=== PATIENT | male | born 1975 | race African-American/Black ===

== ENCOUNTER 2023-10-17 09:52 | Emergency (ER) | payer OTHER, SELFPAY ==
[2023-10-17 10:00] VITALS: BP 149/87
--- NOTE | 2023-10-17 10:31 | ED.GENMED ---
History of Present Illness
General
Chief Complaint: Urinary Symptoms
Source: patient
Exam Limitations: none
Time Seen by Provider: 10/17/23 10:15
Nursing documentation reviewed up to this point in time: agreed with
Travel History
Have you had any contact with someone who has COVID-19?: No
Do you have any symptoms of coronavirus? Fever > 100 degrees, chills, cough, shortness of breath, sore throat, loss of taste or smell, muscle aches, or headache?: No
History of Present Illness
History of Present Illness:
48-year-old male presenting to the emergency department today with concerns of swelling to his testicle over the past 2 days. Denies any specific injuries to the area or obvious inciting event. Denies any urinary symptoms no additional symptoms
otherwise. Claims that he may have had some mild trauma to the area when he slipped on ice in his legs may have hit him in the scrotum.
Review of Systems
Review of Systems
Allergies reviewed?: Yes
All Other Systems: ROS reviewed and negative except as documented in HPI and ROS
Phy Exam
Physical Exam
Physical Exam:
GENERAL: Alert , in no apparent distress
EYE: pupils equal and reactive
NECK: Supple, no significant adenopathy.
ENT: o/p clr, mmm.
CARDIAC: Regular rate and rhythm .
LUNGS: Clear breath sounds bilaterally, no acute respiratory distress, no wheezes/rales/rhonchi
ABDOMEN: Significant swelling to the scrotum right-sided worse than the left no fluctuance or induration. Minimal tenderness. Normal penis
NEUROLOGICAL: Alert and oriented, no focal neuro deficits
SKIN: Warm and dry, skin intact.
MUSCULOSKELETAL: No edema, well perfused.
PSYCH: Normal and appropriate interaction.
Course
Orders/Labs/Results
Orders:
Orders
10/17/23 10:27
Scrotum US [US Scrotum] Urgent
Comment:
Reason For Exam: right scrotal swelling
10/17/23 10:49
Urinalysis Reflex To Culture Urgent
Date Specimen was Collected: 10/17/23
Time Specimen was Collected: 10:28
Urine Microscopic Reflex Cult Urgent
Abnormal Lab Results
10/17/23
10:49
Leukocyte Esterase Rfl Trace A
(Negative)
Vital Signs
Initial and Last Documented VS:
Initial Vital Signs
Temp Pulse Resp BP Pulse Ox
98.4 F 72 18 149/87 96
10/17/23 10:00 10/17/23 10:00 10/17/23 10:00 10/17/23 10:00 10/17/23 10:00
Last Documented Vital Signs
Temp Pulse Resp BP Pulse Ox
98.4 F 72 18 149/87 96
10/17/23 10:00 10/17/23 10:00 10/17/23 10:00 10/17/23 10:00 10/17/23 10:00
MDM/Problems Addressed
MDM/Problems Addressed:
48-year-old male presenting to the emergency department today with concerns of significant swelling to the testicle mainly on the right side some swelling to the left as well. No significant redness or warmth mild tenderness to the proximal portion
of the testicle however the discomfort is minimal. No additional findings otherwise no fluctuance or induration. Plan for ultrasound for further assessment. Ultrasound showing hydrocele. Otherwise patient generally well-appearing urinalysis
without signs of infection or additional concerns. No concerns for STD. Plan for symptomatic treatment and close follow-up with urologist as needed. Return precautions given.
*Critical Care Note
Total Time (30-74mins, 75-104mins- exclusive of procedures): Not Applicable
ED Attending Note
-
Portions of this chart may have been created with voice recognition software.� Occasional wrong word or��sound alike� substitutions may have occurred due to the inherent limitations of voice recognition software.
Discharge Plan
Departure
Patient Disposition: Home (Routine Discharge)
Date of Disposition: 10/17/23
Time of Disposition: 12:29
Patient with high blood pressure during this ER visit?: Yes
Condition: Good
Covid-19: Not Applicable
Discharge Problem:
Hydrocele
Instructions: Hydrocele/Varicocele (DC), BLOOD PRESSURE
Referrals:
Neto Miguel MD [Active] -
Jovanny Garcia DO [Family Provider] -
Stand Alone Forms: Return to Work
Activity Restrictions/Additional Instructions:
You came to the emergency department today with concerns of swelling to the scrotum. This is what is called a hydrocele. This should hopefully go away its own if it does not please follow-up closely with urology within 1 week. Return to the
emergency department for any worsening, new or concerning symptoms.
Interventions
Interventions:
*Nursing Disposition Last Done: 10/17/23 12:36
Discharge Date and Time
Discharge Date/Time: 10/17/23 12:37
[2023-10-17 11:05] LABS: Urine Albumin Negative (Neg - Trace); Urine Bilirubin Negative (Negative); Urine Character Clear (Clear); Urine Color Yellow; Urine Glucose Negative (Negative); Urine Ketone Negative (Negative); Urine Leukocyte Trace (Negative); Urine Nitrite Negative (Negative); Urine Occult Blood Negative (Negative); Urine Specific Gravity 1.005 (<1.030); Urine Urobilinogen Negative (Neg - 1+); Urine pH 6.5 (5.0-9.0)
[2023-10-17 11:22] LABS: Urine Red Blood Cell None Seen /HPF (0-2); Urine White Cell 0-2 /HPF (0-5)
== END 2023-10-17 12:37 | disposition home or self-care (01) ==
LOC: EMR 09:52
PROVIDERS: Physician Assistant; EMERGENCY PHYSICIAN Emergency Medicine; FAMILY PHYSICIAN Family Medicine
DX: N43.3 Hydrocele, unspecified (principal)
CPT/HCPCS: 99284; 76870; 81003; 81015; 93976

== ENCOUNTER 2023-11-17 06:21 | Day surgery (SDC) | payer OTHER, SELFPAY ==
[2023-11-17] VITALS (21 sets, daily range): BP systolic 149–184; BP diastolic 98–155; BMI 37.5
[2023-11-17] MEDS: NORMOSOL-R 1000 IV (08:14)
[2023-11-17] MEDS: LEVAQUIN 100 IV (08:44)
[2023-11-17] MEDS: DILAUDID 0.5 MG IV ×2 (11:16→12:23)
[2023-11-17] MEDS: Pyridium 200 MG PO (12:38)
[2023-11-17] MEDS: FLOMAX 0.400000000000000022 MG PO (12:38)
[2023-11-17] MEDS: APRESOLINE 5 MG IV ×2 (12:38→12:53)
== END 2023-11-17 13:55 | disposition home or self-care (01) ==
LOC: SDS 06:21
PROVIDERS: ATTENDING PHYSICIAN Specialist
DX: S30.22XA Contusion of scrotum and testes, initial encounter (principal); W00.0XXA Fall on same level due to ice and snow, initial encounter
CPT/HCPCS: 54520; 88305